=== PATIENT | female | born 1975 | race Hispanic/Latino ===

== ENCOUNTER 2022-08-14 14:31 | Emergency (ER) | payer OTHER ==
[~2022-08-14] VITALS: Ht 160 cm; Wt 67.1 kg
[2022-08-14] MEDS ORDERED: KETOROLAC TROMETHAMINE 30 MG/ML VIAL IM STA (15:49)
[2022-08-14] MEDS ORDERED: PREDNISONE20 MG PO (15:58)
[2022-08-14] MEDS ORDERED: CYCLOBENZAPRINE5 MG PO (15:58)
[2022-08-14] MEDS ORDERED: KETOROLAC TROME10 MG PO (15:58)
[2022-08-14] MEDS ORDERED: DEXAMETHASONE SOD PHOS 10 MG/1 ML VIAL IM ONE (16:00)
[2022-08-14] MEDS ORDERED: DEXAMETHASONE SOD PHOS INJ 4 MG/ML SDV ONE (16:19)
[2022-08-14] MEDS ORDERED: KETOROLAC TROMETHAMINE 30 MG/ML VIAL ONE (16:19)
== END 2022-08-14 16:58 | disposition home or self-care (01) ==
LOC: FSED 14:37
DX: M54.50 Low back pain, unspecified (principal); M25.511 Pain in right shoulder; I10 Essential (primary) hypertension; F32.A Depression, unspecified
CPT/HCPCS: 96372; 99282; J1100 ×2; J1885